=== PATIENT | female | born 1990 | race Caucasian/White ===

== ENCOUNTER 2016-05-30 18:33 | Emergency (ER) | payer MEDICAID ==
[~2016-05-30] VITALS: Ht 157.5 cm; Wt 66.2 kg
[2016-05-30 18:50] VITALS: BP 132/66; PULSE 88; RESP 14; TEMP 98.9; O2SAT 97
--- NOTE | 2016-05-30 19:55 | NUR ---
Patient to ER bed 8 to gown for evaluation. Side rails up. Report given to DIXIE SWENSON.
--- NOTE | 2016-05-30 19:55 | NUR ---
ER at bedside examining patient.
--- NOTE | 2016-05-30 19:58 | NUR ---
Pt brought in by boyfriend in stable. Pt c/o abd pain 10/ w/ +N/V. Pt stated that she noticed blood in her stool every time she had a bowel movement today. Pt stated that she is starting to feel dizzy. Placed pt on lunchroom monitor. No acute distress noted at this time, will continue to monitor
[2016-05-30 20:55] LABS: BILIRUBIN,URINE NEGATIVE (NEGATIVE); BLOOD, URINE 2+ (NEGATIVE); CLARITY/URINE SL HAZY (CLEAR); COLOR,URINE YELLOW (YELLOW); GLUCOSE,URINE NEGATIVE (NEGATIVE); KETONES,URINE NEGATIVE (NEGATIVE); LEUKOCYTE ESTERASE ,URINE NEGATIVE (NEGATIVE); NITRITE, URINE NEGATIVE (NEGATIVE); PROTEIN URINE NEGATIVE (NEGATIVE); UROBILINOGEN,URINE 0.2 (0.2-1.0)
[2016-05-30] MEDS ORDERED: NACL 0.9% 1,000 ML IV ONE (20:59)
[2016-05-30] MEDS ORDERED: MORPHINE 4 MG/ML INJ. SYRINGE IVP ONE (21:00)
[2016-05-30 21:10] LABS: BACTERIA,URINE FEW /HPF (None Seen); MUCUS,URINE 1+ /LPF (None Seen)
[2016-05-30] MEDS ORDERED: LEVOFLOXACIN 500 MG/D5W 100 ML IV ONE (21:15)
[2016-05-30 21:26] LABS: BASOPHILS # (AUTO) 0.2 K/uL (0.0-0.2); BASOPHILS % (AUTO) 1.4 % (0.0-2.0); EOSINOPHILS # (AUTO) 1.3 K/uL (0.0-0.4); HEMATOCRIT 47.1 % (36-48); HEMOGLOBIN 15.8 g/dL (12.0-16.0); LYMPHOCYTES # (AUTO) 3.1 K/uL (1.0-5.5); LYMPHOCYTES % (AUTO) 18.7 % (20.5-51.5); MEAN CORPUSCULAR HEMOGLOBIN 31 pg (27-31); MEAN CORPUSCULAR HGB CONC 34 % (32-36); MEAN CORPUSCULAR VOLUME 91 fL (79.0-98.0); MONOCYTES # (AUTO) 0.8 K/uL (0.0-1.0); NEUTROPHILS # (AUTO) 11.1 K/uL (1.8-7.7); NEUTROPHILS % (AUTO) 66.9 % (40.0-70.0); PLATELET COUNT (AUTO) 257 K/uL (130-430); RED BLOOD CELL COUNT(AUTO) 5.16 MIL/uL (4.2-6.2); RED CELL DISTRIBUTION WIDTH 12.2 % (9.0-15.0); WHITE BLOOD COUNT (AUTO) 16.5 K/uL (4.8-10.8)
[2016-05-30] MEDS ORDERED: ONDANSETRON HCL 4 MG/2 ML VIAL IVP ONE (21:45)
[2016-05-30 22:08] LABS: CALCIUM 9.4 mg/dL (8.4-11.0); CREATININE 0.74 mg/dL (0.55-1.30); POTASSIUM 3.9 mmol/L (3.5-5.1)
[2016-05-30 22:15] LABS: ALBUMIN 4.5 g/dL (3.4-4.8); TOTAL BILIRUBIN 0.3 mg/dL (0.0-1.0); TOTAL PROTEIN, SERUM 8.4 g/dL (6.4-8.3)
[2016-05-30 23:50] VITALS: BP 132/66; PULSE 88; RESP 14; TEMP 98.9; O2SAT 97
--- NOTE | 2016-05-30 23:50 | NUR ---
Patient given written and verbal discharge instructions and verbalizes understanding. ER MD Ballard discussed with patient the results and treatment provided. Patient in stable condition. ID arm band removed. IV catheter removed intact and dressing applied, no active bleeding. Rx of Flagyl given. Patient educated on pain management and to follow up with PMD. Pain Scale 0/10. Opportunity for questions provided and answered.
== END 2016-05-30 23:50 | disposition home or self-care (01) ==
LOC: SED 18:33
DX: A09 Infectious gastroenteritis and colitis, unspecified (principal); Z88.0 Allergy status to penicillin; Z88.1 Allergy status to other antibiotic agents
CPT/HCPCS: 36415; 74176; 80053; 81000; 81025; 85025; 96365; 96375; 99285; J1956; J2270; J2405; J7030

== ENCOUNTER 2016-07-03 13:11 | Emergency (ER) | payer MEDICAID ==
[~2016-07-03] VITALS: Ht 160 cm; Wt 65.3 kg
[2016-07-03 13:30] VITALS: BP_SYST 120
[2016-07-03] MEDS ORDERED: DOXYCYCLINE HYCLATE 100 MG CAPSULE PO ONE (15:45)
[2016-07-03] MEDS ORDERED: LIDOCAINE/PRILOCAINE 5 GM CREAM (EMLA) TP ONE (16:00)
[2016-07-03] MEDS ORDERED: LIDOCAINE/EPI 2% 1:100000 20 ML VIAL INJ ONE (16:00)
[2016-07-03] MEDS ORDERED: SODIUM BICARBONATE 8.4% VIAL 50 MEQ/50 ML VIAL INJ ONE (16:00)
[2016-07-03 16:20] VITALS: BP_SYST 118
[2016-07-03] MEDS ORDERED: IBUPROFEN 800 MG TABLET PO ONE (16:30)
== END 2016-07-03 16:20 | disposition home or self-care (01) ==
LOC: SED 13:40
DX: L02.416 Cutaneous abscess of left lower limb (principal); Z88.0 Allergy status to penicillin; Z88.1 Allergy status to other antibiotic agents
CPT/HCPCS: 99284

== ENCOUNTER 2016-07-05 17:28 | Emergency (ER) | payer MEDICAID ==
[~2016-07-05] VITALS: Ht 160 cm; Wt 65.3 kg
--- NOTE | 2016-07-05 17:30 | NUR ---
Patient to ER bed 3 to gown for evaluation. Side rails up. Report given to Sonia COLIN.
--- NOTE | 2016-07-05 17:38 | NUR ---
Patient to ER to have wound re-packed. Patient states that end of last month she had a bug bite and yesterday had the wound I&D. Wound located posterior above knee joint. AAOx4, unlabored breathing, no signs of acute distress.
[2016-07-05 17:44] VITALS: BP_SYST 116
--- NOTE | 2016-07-05 17:49 | NUR ---
ER MD Mendoza at bedside for evaluation
[2016-07-05] MEDS ORDERED: SULFAMETHOXAZOLE/TRIMETHOPR DS 1 TABLET PO ONE (18:00)
[2016-07-05] MEDS ORDERED: ceFAZolin SODIUM 1 GM VIAL IM ONE (18:00)
--- NOTE | 2016-07-05 18:16 | NUR ---
Wound re-packed. Clean dressing applied.
[2016-07-05 19:02] VITALS: BP_SYST 119
--- NOTE | 2016-07-05 19:02 | NUR ---
Patient given written and verbal discharge instructions and verbalizes understanding. ER MD Mendoza discussed with patient the results and treatment provided. Patient in stable condition. ID arm band removed. Patient educated on pain management and to follow up with PMD. Pain Scale 0/10. Opportunity for questions provided and answered.
== END 2016-07-05 19:02 | disposition home or self-care (01) ==
LOC: SED 17:28
DX: Z48.01 Encounter for change or removal of surgical wound dressing (principal); Z88.0 Allergy status to penicillin; Z88.1 Allergy status to other antibiotic agents
CPT/HCPCS: 99283

== ENCOUNTER 2017-10-26 06:03 | Inpatient (IN) | payer MEDICAID ==
[~2017-10-26] VITALS: Ht 160 cm; Wt 64.4 kg
[2017-10-26 06:06] VITALS: BP_SYST 143
[2017-10-26] MEDS ORDERED: NACL 0.9% 1,000 ML IV ONE (06:11)
[2017-10-26] MEDS ORDERED: ASPIRIN 81 MG TAB.CHEW PO ONE (06:15)
[2017-10-26] MEDS ORDERED: KETOROLAC TROMETHAMINE 30 MG VIAL IVP ONE (06:30)
[2017-10-26 07:03] LABS: BASOPHILS # (AUTO) 0.1 K/uL (0.0-0.2); EOSINOPHILS # (AUTO) 0.2 K/uL (0.0-0.4); MONOCYTES # (AUTO) 0.4 K/uL (0.0-1.0)
[2017-10-26 07:11] LABS: BILIRUBIN,URINE NEGATIVE (NEGATIVE); BLOOD, URINE 3+ (NEGATIVE); CLARITY/URINE CLEAR (CLEAR); COLOR,URINE YELLOW (YELLOW); GLUCOSE,URINE NEGATIVE (NEGATIVE); KETONES,URINE NEGATIVE (NEGATIVE); LEUKOCYTE ESTERASE ,URINE TRACE (NEGATIVE); NITRITE, URINE NEGATIVE (NEGATIVE); PROTEIN URINE NEGATIVE (NEGATIVE); UROBILINOGEN,URINE 0.2 (0.2-1.0)
[2017-10-26 07:11] LABS: CALCIUM 8.7 mg/dL (8.4-11.0); CREATININE 0.76 mg/dL (0.55-1.30)
[2017-10-26 07:15] LABS: ALBUMIN 3.8 g/dL (3.4-4.8); TOTAL BILIRUBIN 0.3 mg/dL (0.0-1.0)
[2017-10-26 07:16] LABS: PROTHROMBIN TIME 10.6 SECS (9.5-12.5)
[2017-10-26 07:39] LABS: BACTERIA,URINE FEW /HPF (None Seen); MUCUS,URINE None Seen /LPF (None Seen); YEAST,URINE None Seen /HPF (None Seen)
[2017-10-26 09:02] LABS: NEUTROPHILS % (AUTO) 52.4 % (40.0-70.0); WHITE BLOOD COUNT (AUTO) 5.2 K/uL (4.8-10.8)
[2017-10-26 09:03] LABS: BASOPHILS % (AUTO) 1.3 % (0.0-2.0); EOSINOPHILS % (AUTO) 3.5 % (0.0-4.0); LYMPHOCYTES # (AUTO) 1.8 K/uL (1.0-5.5); LYMPHOCYTES % (AUTO) 34.8 % (20.5-51.5); NEUTROPHILS # (AUTO) 2.7 K/uL (1.8-7.7); RED BLOOD CELL COUNT(AUTO) 4.27 MIL/uL (4.2-6.2)
[2017-10-26 09:04] LABS: HEMATOCRIT 37.6 % (36-48); HEMOGLOBIN 12.4 g/dL (12.0-16.0); MEAN CORPUSCULAR HEMOGLOBIN 29 pg (27-31); MEAN CORPUSCULAR HGB CONC 33 % (32-36); MEAN CORPUSCULAR VOLUME 88 fL (79.0-98.0); PLATELET COUNT (AUTO) 228 K/uL (130-430); RED CELL DISTRIBUTION WIDTH 15.1 % (9.0-15.0)
[2017-10-26] MEDS ORDERED: MORPHINE 2 MG/ML INJ. SYRINGE IVP PRN (10:15)
[2017-10-26] MEDS ORDERED: MORPHINE 4 MG/ML INJ. SYRINGE IVP PRN (10:15)
[2017-10-26] MEDS ORDERED: ONDANSETRON HCL 4 MG/2 ML VIAL IVP PRN (10:15)
[2017-10-26 10:48] VITALS: BP_SYST 121
[2017-10-26] MEDS: NACL 0.9% 1,000 ML IV SCH (11:09)
[2017-10-26 14:34] LABS: C-REACTIVE PROTEIN QUANT < 0.2 mg/dL (0-0.5)
[2017-10-26 17:41] LABS: BARBITURATE, URINE NEGATIVE (NEG <=200); BENZODIAZEPINE, URINE NEGATIVE (NEG <=150); CANNABINOID, URINE NEGATIVE (NEG <=50); COCAINE, URINE NEGATIVE (NEG <=150); METHAMPHETAMINES SCREEN,URINE NEGATIVE (NEG <=500); OPIATE, URINE NEGATIVE (NEG <=100); PHENCYCLIDINE SCREEN,URINE NEGATIVE (NEG <=25); UR TRICYCLIC ANTIDEPRESSANTS NEGATIVE (NEG <=300); URINE AMPHETAMINE NEGATIVE (NEG <=500); URINE METHADONE NEGATIVE (NEG <=200); URINE OXYCODONE SCREEN NEGATIVE (NEG <=100); URINE PROPOXYPHENE SCREEN NEGATIVE (NEG <=300)
[2017-10-26 19:36] VITALS: BP_SYST 115
[2017-10-26] MEDS: HEPARIN SODIUM,PORCINE 5000 UNITS/ML VIAL SUBCUT SCH (22:04)
[2017-10-27 00:09] VITALS: BP_SYST 119
[2017-10-27] MEDS: NACL 0.9% 1,000 ML IV SCH ×3 (03:58→21:28)
[2017-10-27 08:10] VITALS: BP_SYST 122
[2017-10-27] MEDS: HEPARIN SODIUM,PORCINE 5000 UNITS/ML VIAL SUBCUT SCH ×2 (09:34→21:00)
[2017-10-27 11:51] VITALS: BP_SYST 108
[2017-10-27] MEDS: ACETAMINOPHEN 325 MG TABLET PO PRN (16:15)
[2017-10-27 19:00] VITALS: BP_SYST 106
[2017-10-27 20:00] VITALS: BP_SYST 106
[2017-10-28] VITALS: BP_SYST 101
[2017-10-28 07:58] VITALS: BP_SYST 116
[2017-10-28] MEDS: HEPARIN SODIUM,PORCINE 5000 UNITS/ML VIAL SUBCUT SCH ×2 (08:08→20:38)
[2017-10-28] MEDS ORDERED: REGADENOSON 0.4 MG/5 ML SYRINGE IVP ONE (11:30)
[2017-10-28 12:00] VITALS: BP_SYST 117
[2017-10-28 13:01] VITALS: BP_SYST 114
[2017-10-28 16:50] VITALS: BP_SYST 99
[2017-10-28 20:00] VITALS: BP_SYST 127
[2017-10-28] MEDS: ACETAMINOPHEN 325 MG TABLET PO PRN (20:42)
[2017-10-29] VITALS: BP_SYST 108
[2017-10-29 08:53] VITALS: BP_SYST 112
[2017-10-29] MEDS: HEPARIN SODIUM,PORCINE 5000 UNITS/ML VIAL SUBCUT SCH (09:00)
[2017-10-29 09:19] LABS: ANTI-SMOOTH MUSCLE AB 15 Units (0-19)
[2017-10-29 10:21] VITALS: BP_SYST 112
[2017-10-29 19:15] LABS: ANTI-DNA(DS) AB, QN <1 IU/mL (0-9); ANTI-NUCLEAR AB DIRECT Negative (Negative); SMITH ABS <0.2 AI (0.0-0.9)
[2017-10-30 05:31] LABS: COMPLEMENT C4, SERUM 21 mg/dL (14-44)
[2017-10-30 11:21] LABS: THYROID PEROXIDASE (TPO) AB <6 IU/mL (0-34)
== END 2017-10-29 10:55 | disposition home or self-care (01) | DRG 203 ==
LOC: SED 06:03 → STU 10:27
PROVIDERS: ADMIT Internal Medicine Nephrology; ATTEND Internal Medicine Nephrology
DX: R07.89 Other chest pain (principal); R59.1 Generalized enlarged lymph nodes; Z88.0 Allergy status to penicillin; Z88.6 Allergy status to analgesic agent
CPT/HCPCS: 36415; 71045; 80053; 80307; 81000-TC; 82550-TC; 83690-TC; 84484; 84703; 85025; 85379; 85610-TC; 85651-TC; 85730-TC; 86140; 93005; 93017; 93306; 96361; 96374; 99285; A9500; J1644; J1885; J2270; J2785; J7030

== ENCOUNTER 2021-02-28 13:33 | Emergency (ER) | payer MEDICAID ==
[~2021-02-28] VITALS: Ht 157.5 cm; Wt 65.8 kg
--- NOTE | 2021-02-28 13:38 | NUR ---
Patient to ER bed 4 to gown for evaluation. Side rails up.
[2021-02-28 13:39] VITALS: BP_SYST 122
--- NOTE | 2021-02-28 14:26 | NUR ---
RECEIVED PT, LAYING ON [employer]. SR ON MONITOR. 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 RESP EVEN AND UNLABORED, ON RA @99%. DENIES ANY RECENT FEVERS/CHILLS. SKIN W/D/I.
[2021-02-28] MEDS ORDERED: NITROGLYCERIN 0.4 MG TAB.SUBL SL ONE (14:30)
--- NOTE | 2021-02-28 15:05 | NUR ---
ORDERS FOR NTG SL, HOWEVER BP 96/52, DR CARDOZA INFORMED, STATES TO HOLD. PT ADVISED, STATES SHE DOES NOT HAVE CHEST PAIN AT THIS TIME. MED HELD.
[2021-02-28 15:14] LABS: BASOPHILS % (AUTO) 0.6 % (0.0-2.0); EOSINOPHILS # (AUTO) 0.2 K/uL (0.0-0.4); EOSINOPHILS % (AUTO) 3.4 % (0.0-4.0); HEMATOCRIT 35.5 % (36-48); HEMOGLOBIN 12.1 g/dL (12.0-16.0); LYMPHOCYTES # (AUTO) 1.6 K/uL (1.0-5.5); LYMPHOCYTES % (AUTO) 28.6 % (20.5-51.5); MEAN CORPUSCULAR HEMOGLOBIN 30 pg (27-31); MEAN CORPUSCULAR HGB CONC 34 % (32-36); MEAN CORPUSCULAR VOLUME 89 fL (79.0-98.0); MONOCYTES # (AUTO) 0.4 K/uL (0.0-1.0); MONOCYTES % (AUTO) 7.8 % (1.7-9.3); NEUTROPHILS # (AUTO) 3.4 K/uL (1.8-7.7); NEUTROPHILS % (AUTO) 59.6 % (40.0-70.0); PLATELET COUNT (AUTO) 249 K/uL (130-430); RED BLOOD CELL COUNT(AUTO) 4.01 MIL/uL (4.2-6.2); RED CELL DISTRIBUTION WIDTH 13.3 % (9.0-15.0); WHITE BLOOD COUNT (AUTO) 5.7 K/uL (4.8-10.8)
[2021-02-28 15:27] LABS: CALCIUM 8.7 mg/dL (8.4-11.0); CREATININE 0.9 mg/dL (0.55-1.30); POTASSIUM 3.8 mmol/L (3.5-5.1)
[2021-02-28 15:31] LABS: ALBUMIN 3.8 g/dL (3.4-4.8); TOTAL BILIRUBIN 0.3 mg/dL (0.0-1.0)
--- NOTE | 2021-02-28 16:17 | NUR ---
NO ACUTE CHANGES IN STATUS, PT IN NAD. ARGENISTCISCO FOR DISPO.
--- NOTE | 2021-02-28 17:27 | NUR ---
DR CARDOZA UPDATED ON PT'S CURRENT STATUS, WAITING ON HIS DISPOSITION. STATES TO GET ANOTHER EKG.
--- NOTE | 2021-02-28 17:56 | NUR ---
Patient given written and verbal discharge instructions and verbalizes understanding. ER MD discussed with patient the results and treatment provided. Patient in stable condition. ID arm band removed. IV catheter removed intact and dressing applied, no active bleeding. Patient educated on pain management and to follow up with PMD. Pain Scale . Opportunity for questions provided and answered. Medication side effect fact sheet provided.
[2021-02-28 17:57] VITALS: BP_SYST 99
== END 2021-02-28 17:55 | disposition home or self-care (01) ==
LOC: SED 13:33
DX: R07.89 Other chest pain (principal); R06.02 Shortness of breath; I95.9 Hypotension, unspecified; Z88.0 Allergy status to penicillin; Z88.1 Allergy status to other antibiotic agents
CPT/HCPCS: 36415; 71045; 80053; 83880; 84484; 85025; 85379; 93005; 99285

== ENCOUNTER 2023-01-17 04:41 | Emergency (ER) | payer SELFPAY ==
[~2023-01-17] VITALS: Ht 157.5 cm; Wt 73.5 kg
[2023-01-17 04:45] VITALS: BP_SYST 128; PULSE 80; RESP 18; TEMP 98.3; O2SAT 97
[2023-01-17] MEDS ORDERED: DEXT30SU PO (05:08)
[2023-01-17] MEDS ORDERED: KETOROLAC TROMETHAMINE 30 MG VIAL IM ONE (05:15)
[2023-01-17] MEDS ORDERED: DEXAMETHASONE SOD PHOSPHATE 4 MG/ML VIAL PO ONE (05:15)
[2023-01-17 05:38] VITALS: BP_SYST 128; PULSE 80; RESP 18; TEMP 98.3; O2SAT 97
== END 2023-01-17 05:38 | disposition home or self-care (01) ==
LOC: SED 04:41
DX: J06.9 Acute upper respiratory infection, unspecified (principal); R50.9 Fever, unspecified; Z88.0 Allergy status to penicillin; Z88.1 Allergy status to other antibiotic agents; Z79.899 Other long term (current) drug therapy
CPT/HCPCS: 99283; 81025; 96372; J1100; J1885